=== PATIENT | male | born 1945 | race Caucasian/White ===

== ENCOUNTER → 2017-11-09 | Outpatient (CLI) | payer BC ==
--- NOTE | 2017-11-09 16:51 | PCVCIMAG ---
APPROVED REPORT Study performed: 11/09/2017 13:38:56 Exam: Stress Echocardiogram Indication: Chest pain, History of Mitral Valve repair, Pacemaker Patient Location: Echo lab Stress Nurse: Kimberly Simpson RN Status: routine Ht: 5 ft 10 in HR: 64 bpm BP: 120/70 mmHg Rhythm: NSR Medical History Medical History: Pacemaker Procedure The patient underwent an Exercise Stress Test using the Ayaan Protocol. Blood pressure, heart rate, and EKG were monitored. An Echocardiogram was performed by histologic technician in four stages in quad fashion. At peak stress, four selected images were obtained and placed side by side with resting images for comparison. Stress Test Details Stress Test: Exercise stress testing was performed using a Ayaan protocol. HR Resting HR: 64 bpmMax Heart Rate (APMHR): 150 bpm Max HR Achieved: 153 bpmTarget HR (85% APMHR): 127 bpm % of APMHR: 102 HR response to stress: Normal HR response to stress BP Resting BP: 120/70 mmHg Max BP: 146/68 mmHg ECG Resting ECG: Sinus rhythm with atrial pacing Stress ECG: Sinus Rhythm ST Change: Normal Maximum ST Deviation: 0 mm Arrhythmia: VPC's Recovery ECG: Sinus Rhythm Recovery ST Change: Normal Recovery ST Deviation: 0 mm Recovery Arrhythmia: None Clinical Reason for Termination: Maximal effort Exercise duration: 9 min sec Highest Stage Achieved: Stage 4: 4.2 mph at 16% grade. Exercise capacity: 10.10 METs Overall Exercise Capacity for Age: Normal Angina Score: None Stress ECG Conclusion Clinical: Non-ischemic ECG: Non-ischemic Russell Treadmill Score is 9.0 which is Low risk. Pre-Stress Echo The resting Echocardiogram showed normal left ventricular contractility with an estimated Ejection Fraction of about 50-55%. Normal wall motion in all segments on baseline images. Post-Stress Echo The stress Echocardiogram showed normal left ventricular contractility with an estimated Ejection Fraction of about 60-65%. Normal augmentation of wall motion in all segments on post stress images. Clinical No clinical or ECG evidence for ischemia. Conclusion Clinical Response: Non-ischemic Exercise Capacity: Average Stress ECG Response: Non-ischemic Stress Echo Images: Non-ischemic The left ventricle is normal in size and wall thickness in both the rest and stress images. Normal stress echocardiogram with maximal exercise stress. Other Information Study Quality: Adequate <Conclusion> The left ventricle is normal in size and wall thickness in both the rest and stress images. Normal stress echocardiogram with maximal exercise stress.
== END | disposition home or self-care (01) ==
LOC: PCVCIMAG 13:28
PROVIDERS: ATTEND Internal Medicine
DX: I48.0 Paroxysmal atrial fibrillation (principal); I10 Essential (primary) hypertension
CPT/HCPCS: 93325; 93351